=== PATIENT | female | born 1995 | race Caucasian/White ===

== ENCOUNTER 2021-03-17 | Emergency (ER) | payer OTHER ==
[~2021-03-17] VITALS: Ht 160 cm; Wt 64.5 kg
[2021-03-17 00:14] VITALS: BP 138/92
== END 2021-03-17 00:57 ==
LOC: ER 00:01
DX: S70.11XA Contusion of right thigh, initial encounter (principal); R00.0 Tachycardia, unspecified; V89.2XXA Person injured in unspecified motor-vehicle accident, traffic, initial encounter; Y93.89 Activity, other specified; Y92.89 Other specified places as the place of occurrence of the external cause; Y99.8 Other external cause status
CPT/HCPCS: 99283

== ENCOUNTER 2024-01-26 12:17 | Emergency (ER) | payer MEDICAID ==
[~2024-01-26] VITALS: Ht 160 cm; Wt 63.6 kg
[2024-01-26 12:51] VITALS: BP 108/69; PULSE 113; RESP 18; TEMP 98.1; O2SAT 97
[2024-01-26] MEDS ORDERED: PERM60CR19 TOP (15:12)
== END 2024-01-26 15:38 | disposition home or self-care (01) ==
LOC: ER 12:18
DX: F22 Delusional disorders (principal); F17.200 Nicotine dependence, unspecified, uncomplicated
CPT/HCPCS: 99282